=== PATIENT | male | born 1945 | race Caucasian/White ===

== ENCOUNTER 2019-06-06 10:52 | Emergency (ER) | payer MEDICARE ==
[2019-06-06 11:07] VITALS: RESP 18; TEMP 98.1
--- NOTE | 2019-06-06 11:43 | ED ---
General Adult HPI - General Chief complaint: Neuro Symptoms/Deficit Stated complaint: Fell out of chair/trouble seeing Time Seen by Provider: 06/06/19 11:08 Source: patient Mode of arrival: wheelchair Limitations: no limitations - History of Present Illness Initial comments: Dictation was produced using [employer] dictation software. please excuse any grammatical, word or spelling errors. Chief Complaint: 73-year-old male presents with double vision. History of Present Illness: 73-year-old male. He presents with double vision. Patient states he fell yesterday. States he was sitting on a chair when he was summoned by his . He stood up immediately and fell. Landing on his bilateral elbows. He does not really quite remember the fall. Since the fall he's been having double vision. Patient states his double vision is worse especially with forced site. States that he feels like sees to especially with images that are approximately 6-8 feet away. Patient has no other symptoms at this time. Denies headache. No other neurologic symptoms. 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 The ROS documented in this emergency department record has been reviewed and confirmed by me. Those systems with pertinent positive or negative responses have been documented in the HPI. All other systems are other negative and/or noncontributory. PHYSICAL EXAM: General Impression: Alert and oriented x3, not in acute distress HEENT: Normocephalic atraumatic, extra-ocular movements intact, pupils equal and reactive to light bilaterally, mucous membranes moist, perforated right tympanic membrane Cardiovascular: Heart regular rate and rhythm, S1&S2 audible, no murmurs, rubs or gallops Chest: Lungs clear to auscultation bilaterally, no rhonchi, no wheeze, no rales Abdomen: Bowel sounds present, abdomen soft, non-tender, non-distended, no organomegaly Musculoskeletal: Pulses present and equal in all extremities, no peripheral edema Motor: no focal deficits noted Neurological: CN II-XII grossly intact, no focal motor or sensory deficits noted When looking at my hand from approximately 10 feet away my hand appears to be split into Skin: Intact with no visualized rashes Psych: Normal affect and mood ED course: 73-year-old male presents with visual disturbance after fall. Upon a rrival are within acceptable limits. Physical examination is grossly benign. Laboratory evaluation obtained. CBC, coag panel, metabolic panels obtained. Grossly unremarkable except for glucose of 321. She denies any history of diabetes however he was told that he had prediabetes several years ago. Computed tomography scan of the brain was obtained with no acute processes. CT of the C-spine is negative. Discussed patient case in detail with Dr. Barnard who reports that his symptoms may be secondary to a stroke however unlikely. His acuity is 20/30 both, left 20/40 and right 20/30. Gen. he appears to have diplopia when looking with both eyes. She remains patient be admitted to observation with possible effusion of stroke workup tomorrow or later today. Patient states that he absolutely does not want to be admitted to the hospital for monitoring and neurology evaluation because his sick at home. Patient understands the risk of being discharged. He understands that he should return to the emergency Department immediately if he develops any worsening symptoms including strokelike symptoms or worsening vision. Patient is understandable and agreeable to plan. Patient will be discharged. Still to follow-up with his primary care physician. EKG interpretation: Ventricular rate he 9, normal sinus rhythm, AL interval 170, care 70, QTc 4:30. No AL prolongation, no QTC prolongation, no ST or T-wave changes noted. . Overall, this EKG is unremarkable - Related Data Home Medications Medication Instructions Recorded Confirmed No Known Home Medications 06/06/19 06/06/19 Allergies Allergy/AdvReac Type Severity Reaction Status Date / Time Sulfa (Sulfonamide Allergy Rash/Hives Verified 06/06/19 11:41 Antibiotics) Review of Systems ROS Statement: Those systems with pertinent positive or pertinent negative responses have been documented in the HPI. ROS Other: All systems not noted in ROS Statement are negative. Past Medical History Past Medical History: No Reported History History of Any Multi-Drug Resistant Organisms: None Reported Past Surgical History: No Surgical Hx Reported Past Psychological History: No Psychological Hx Reported Smoking Status: Never smoker Past Alcohol Use History: Occasional Past Drug Use History: None Reported General Exam Limitations: no limitations Course Vital Signs 06/06/19 11:02 Temperature 98.1 F Pulse Rate 91 Respiratory 18 Rate Blood Pressure 144/86 O2 Sat by Pulse 97 Oximetry Medical Decision Making - Lab Data Result diagrams: 06/06/19 11:33 06/06/19 11:33 Lab Results 06/06/19 06/06/19 06/06/19 Range/Units 11:33 11:33 11:33 WBC 7.1 (3.8-10.6) k/uL RBC 5.08 (4.30-5.90) m/uL Hgb 15.7 (13.0-17.5) gm/dL Hct 45.0 (39.0-53.0) % MCV 88.5 (80.0-100.0) fL MCH 30.8 (25.0-35.0) pg MCHC 34.8 (31.0-37.0) g/dL RDW 12.7 (11.5-15.5) % Plt Count 170 (150-450) k/uL Neutrophils % 70 % Lymphocytes % 20 % Monocytes % 6 % Eosinophils % 1 % Basophils % 0 % Neutrophils # 4.9 (1.3-7.7) k/uL Lymphocytes # 1.4 (1.0-4.8) k/uL Monocytes # 0.5 (0-1.0) k/uL Eosinophils # 0.1 (0-0.7) k/uL Basophils # 0.0 (0-0.2) k/uL PT 10.7 (9.0-12.0) sec INR 1.0 (<1.2) APTT 25.6 (22.0-30.0) sec Sodium 138 (137-145) mmol/L Potassium 4.2 (3.5-5.1) mmol/L Chloride 103 (98-107) mmol/L Carbon Dioxide 22 (22-30) mmol/L Anion Gap 13 mmol/L BUN 18 (9-20) mg/dL Creatinine 0.68 (0.66-1.25) mg/dL Est GFR (CKD-EPI)AfAm >90 (>60 ml/min/1.73 sqM) Est GFR (CKD-EPI)NonAf >90 (>60 ml/min/1.73 sqM) Glucose 321 H (74-99) mg/dL Calcium 9.9 (8.4-10.2) mg/dL Magnesium 1.9 (1.6-2.3) mg/dL Disposition Clinical Impression: Visual disturbance Disposition: HOME SELF-CARE Condition: Good Instructions (If sedation given, give patient instructions): Blurred Vision (ED) Is patient prescribed a controlled substance at d/c from ED?: No Referrals: Rosalio Palomares MD [Primary Care Provider] - 1-2 days Time of Disposition: 12:54
[2019-06-06 11:56] LABS: Basophils % (A) 0 %; Eosinophils # (A) 0.1 k/uL (0-0.7); Eosinophils % (A) 1 %; HGB 15.7 gm/dL (13.0-17.5); Lymphocytes # (A) 1.4 k/uL (1.0-4.8); Lymphocytes % (A) 20 %; MCH 30.8 pg (25.0-35.0); MCHC 34.8 g/dL (31.0-37.0); MCV 88.5 fL (80.0-100.0); Mean Platelet Volume 6.3; Monocytes # (A) 0.5 k/uL (0-1.0); Monocytes % (A) 6 %; Neutrophils # (A) 4.9 k/uL (1.3-7.7); Neutrophils % (A) 70 %; Platelet Count 170 k/uL (150-450); RBC 5.08 m/uL (4.30-5.90); RDW 12.7 % (11.5-15.5); WBC 7.1 k/uL (3.8-10.6)
--- NOTE | 2019-06-06 12:05 | CT ---
EXAMINATION TYPE: CT brain gertrude dumont con DATE OF EXAM: 06/06/2019 COMPARISON: None HISTORY: fell out of chair, visual disturbance CT DLP: 1461.6 mGycm, Automated exposure control for dose reduction was used. CONTRAST: Patient injected with neural mL of Isovue 300. CT of the brain is performed utilizing 3 mm thick sections through the posterior fossa and 3 mm thick sections through the remaining calvarium. Study is performed within 24 hours of arrival to the hospital. No abnormal hyperdensity is present to suggest an acute intracranial hemorrhage. No mass lesion is evident. No acute infarcts are evident. Ventricles and sulci are appropriate for the patient age. Paranasal sinuses and mastoid air cells within the [id number] are clear. IMPRESSIONS: 1. Normal CT brain. CT cervical spine. COMPARISON: None CT of the cervical spine is performed in the axial plane at 2 mm thick sections. Reconstructed image s in the coronal, and sagittal plane are reviewed on the computer. No acute fractures are evident. Vertebral body alignment is normal. Disc heights are preserved. Vertebral body heights are preserved. No spinal canal stenosis is evident. There is some foraminal narrowing secondary to facet hypertrophy and uncovertebral joint hypertrophy. This is greater on the right at C5-6. Left foraminal stenosis is evident C3-4. Right foraminal narro wing is present C2-C3. IMPRESSIONS: 1. Foraminal narrowing greatest levels discussed above secondary to facet hypertrophy and uncovertebr al joint hypertrophy. 2. No acute osseous abnormality.
[2019-06-06 12:13] LABS: African American GFR (CKD) >90 (>60 ml/min/1.73 sqM); Anion Gap 13 mmol/L; Blood Urea Nitrogen 18 mg/dL (9-20); Calcium 9.9 mg/dL (8.4-10.2); Carbon Dioxide 22 mmol/L (22-30); Chloride 103 mmol/L (98-107); Glucose 321 mg/dL (74-99); Magnesium 1.9 mg/dL (1.6-2.3); Potassium 4.2 mmol/L (3.5-5.1); Sodium 138 mmol/L (137-145)
[2019-06-06 12:27] LABS: Partial Thromboplastin Time 25.6 sec (22.0-30.0); Prothrombin Time 10.7 sec (9.0-12.0)
[2019-06-06 13:10] VITALS: BP 143/89; PULSE 89
== END 2019-06-06 13:01 | disposition home or self-care (01) ==
LOC: EC 10:52
DX: H53.2 Diplopia (principal); R73.03 Prediabetes; H72.91 Unspecified perforation of tympanic membrane, right ear; Z88.2 Allergy status to sulfonamides; W07.XXXA Fall from chair, initial encounter
CPT/HCPCS: 36415; 70450; 72125; 80048; 83735; 85025; 85610; 85730; 93005; 99285

== ENCOUNTER → 2019-06-25 | Outpatient (CLI) | payer MEDICARE ==
--- NOTE | 2019-06-25 16:56 | MR ---
EXAMINATION TYPE: MR brain wo/w con DATE OF EXAM: 06/25/2019 COMPARISON: None HISTORY: Syncope TECHNIQUE: Multiplanar, multisequence images of the brain and brainstem is performed without and with IV contras t, utilizing 9 mL intravenous Gadavist . FINDINGS: There is mild cerebral atrophy. There is no mass effect nor midline shift. There is no sign of intracranial hemorrhage. Diffusion images show no evidence of a cortical infarct. Ventricles have fairly normal size. There is some mild dural thickening over both cerebral hemispheres in the parietal regions. This madeline ures up to 5 mm on the right side and 23 mm on the left side. Corpus callosum appears normal. Brainstem is intact. Sella turcica appears normal. IMPRESSION: Mild cerebral atrophy. Mild bilateral dural thickening that could relate to old inflammat ory process or chronic subdural hematomas.
== END | disposition home or self-care (01) ==
LOC: RADMRIMAIN 09:04
PROVIDERS: ATTEND Family Medicine
DX: G31.9 Degenerative disease of nervous system, unspecified (principal)
CPT/HCPCS: 70553; A9585

== ENCOUNTER → 2019-06-27 | Outpatient (CLI) | payer MEDICARE ==
--- NOTE | 2019-06-28 11:49 | ECHOF ---
Referral Reason:R55 syncope MEASUREMENTS -------- HEIGHT: 182.9 cm WEIGHT: 46.7 kg BP: RVIDd: 3.2 cm (< 3.3) IVSd: 1.2 cm (0.6 - 1.1) LVIDd: 4.1 cm (3.9 - 5.3) LVPWd: 1.1 cm (0.6 - 1.1) IVSs: 1.5 cm LVIDs: 3.3 cm LVPWs: 1.1 cm LA Diam: 3.4 cm (2.7 - 3.8) Ao Diam: 3.7 cm (2.0 - 3.7) AV Cusp: 1.4 cm (1.5 - 2.6) LA Diam: 3.2 cm (2.7 - 3.8) MV EXCURSION: 19.089 mm (> 18.000) MV EF SLOPE: 63 mm/s (70 - 150) EPSS: 0.2 cm MV E Michael: 0.38 m/s MV DecT: 318 ms MV A Michael: 0.91 m/s MV E/A Ratio: 0.42 AV maxP.00 mmHg AV meanP.73 mmHg FINDINGS -------- Sinus rhythm. This was a technically good study. The left ventricular size is normal. There is mild concentric left ventricular hypertrophy. Overa ll left ventricular systolic function is normal with, an EF between 55 - 60 %. The right ventricle is normal in size. The left atrial size is normal. The right atrial size is normal. There is mild to moderate aortic valve sclerosis. Peak/mean gradient across the Aortic Valve is 9.0 0mmHg / 4.73mmHg. Mild mitral annular calcification present. No mitral regurgitation. Mild tricuspid regurgitation present. Right ventricular systolic pressure is normal at < 35 mmHg. There is no evidence of pulmonary hypertension. There is no pulmonic regurgitation present. The aortic root size is normal. There is no pericardial effusion. CONCLUSIONS -------- 1. Sinus rhythm. 2. This was a technically good study. 3. The left ventricular size is normal. 4. There is mild concentric left ventricular hypertrophy. 5. Overall left ventricular systolic function is normal with, an EF between 55 - 60 %. 6. The right ventricle is normal in size. 7. The left atrial size is normal. 8. The right atrial size is normal. 9. There is mild to moderate aortic valve sclerosis. 10. Peak/mean gradient across the Aortic Valve is 9.00mmHg / 4.73mmHg. 11. Mild mitral annular calcification present. 12. No mitral regurgitation. 13. Mild tricuspid regurgitation present. 14. Right ventricular systolic pressure is normal at < 35 mmHg. 15. There is no evidence of pulmonary hypertension. 16. There is no pulmonic regurgitation present. 17. The aortic root size is normal. 18. There is no pericardial effusion. [employer] SUPERVISOR: Kate Norris RDCS
--- NOTE | 2019-06-28 12:30 | US ---
EXAMINATION TYPE: US carotid duplex BILAT DATE OF EXAM: 06/27/2019 COMPARISON: NONE CLINICAL HISTORY: 74-year-old male R55 SYNCOPE AND COLLAPSE. Dizziness TECHNIQUE: Carotid duplex ultrasound examination. Indirect Doppler criteria is utilized. FINDINGS: EXAM MEASUREMENTS: RIGHT: Peak Systolic Velocity (PSV) cm/sec ----- Right CCA: 109.9 ----- Right ICA: 134.6 ----- Right ECA: 108.4 ICA/CCA ratio: 1.2 RIGHT: End Diastole cm/sec ----- Right CCA: 25.6 ----- Right ICA: 31.4 ----- Right ECA: 0 LEFT: Peak Systolic Velocity (PSV) cm/sec ----- Left CCA: 91.0 ----- Left ICA: 107.0 ----- Left ECA: 131.7 ICA/CCA ratio: 1.2 LEFT: End Diastole cm/sec ----- Left CCA: 25.6 ----- Left ICA: 31.4 ----- Left ECA: 22.7 VERTEBRALS (direction of flow): Right Vertebral: Antegrade Left Vertebral: Antegrade Rhythm: Normal No significant stenosis seen Mild to moderate atherosclerotic calcifications right bifurcation and mild on the left. IMPRESSION: Slightly increased velocities within the mid right ICA may reflect a mild or moderate right ICA steno sis or could be from turbulent flow. Criteria for Assigning % of Stenosis / Diameter reduction (Estimation based on the indirect measurements of the internal carotid artery velocities (ICA PSV). 1. Normal (no stenosis)=ICA PSV < 125 cm/s: ratio < 2.0: ICA EDV<40 cm/s. 2. Less than 50% stenosis=ICA PSV < 125 cm/s: ratio < 2.0: ICA EDV<40 cm/s. 3. 50 to 69% stenosis=ICA PSV of 125 to 230 cm/s: ration 2.0 ? 4.0: ICA EDV 40-100 cm/s. 4. Greater than 70% stenosis to near occlusion= ICA PSV > 230 cm/s: ratio > 4.0: ICA EDV > 100 cm/s. 5. Near occlusion= ICA PSV velocities may be low or undetectable: variable ratio and ICA EDV. 6. Total occlusion=unable to detect flow.
== END | disposition home or self-care (01) ==
LOC: RADUSWWP 12:40
PROVIDERS: ATTEND Family Medicine
DX: R55 Syncope and collapse (principal)
CPT/HCPCS: 93306; 93880

== ENCOUNTER 2023-05-08 00:17 | Emergency (ER) | payer MEDICARE ==
[2023-05-08 00:25] VITALS: TEMP 98.4
[2023-05-08] MEDS ORDERED: SODIUM CHLORIDE 0.9% 500 ML 500 ML IV STA (01:45)
[2023-05-08] MEDS ORDERED: MORPHINE SULFATE 4 MG/ML SYRINGE IV STA (01:45)
[2023-05-08] MEDS ORDERED: ONDANSETRON 4 MG/2 ML VIAL IVP STA (01:45)
[2023-05-08 02:29] LABS: Basophils % (A) 0 %; Eosinophils # (A) 0.2 k/uL (0-0.7); Eosinophils % (A) 1 %; HCT 46.3 % (39.0-53.0); HGB 15.4 gm/dL (13.0-17.5); Lymphocytes # (A) 0.7 k/uL (1.0-4.8); Lymphocytes % (A) 5 %; MCH 30.7 pg (25.0-35.0); MCHC 33.2 g/dL (31.0-37.0); MCV 92.6 fL (80.0-100.0); Mean Platelet Volume 8.2; Monocytes # (A) 0.6 k/uL (0-1.0); Monocytes % (A) 4 %; Neutrophils # (A) 14.3 k/uL (1.3-7.7); Neutrophils % (A) 90 %; Platelet Count 199 k/uL (150-450); RBC 5.01 m/uL (4.30-5.90); RDW 12.9 % (11.5-15.5); WBC 15.9 k/uL (3.8-10.6)
[2023-05-08 02:52] LABS: ALT 17 U/L (4-49); AST 23 U/L (17-59); African American GFR (CKD) 51 (>60 ml/min/1.73 sqM); Albumin 4.4 g/dL (3.5-5.0); Alkaline Phosphatase 66 U/L (38-126); Anion Gap 12 mmol/L; Blood Urea Nitrogen 35 mg/dL (9-20); Calcium 9.5 mg/dL (8.4-10.2); Carbon Dioxide 19 mmol/L (22-30); Chloride 102 mmol/L (98-107); Glucose 244 mg/dL (74-99); Non-African American GFR(CKD) 44 (>60 ml/min/1.73 sqM); Potassium 4.6 mmol/L (3.5-5.1); Sodium 133 mmol/L (137-145); Total Protein 7.4 g/dL (6.3-8.2)
[2023-05-08 03:20] VITALS: RESP 16
[2023-05-08 03:39] LABS: Appearance,Urine Clear (Clear); Bacteria,Urine Rare /hpf; Bilirubin,Urine Negative (Negative); Blood,Urine Negative (Negative); Color,Urine Yellow; Glucose,Urine (UA) 3+ (Negative); Hyaline Casts,Urine 14 /lpf (0-2); Ketones,Urine Trace (Negative); Leukocyte Esterase,Urine Trace (Negative); Mucus,Urine Rare /hpf; Nitrite,Urine Negative (Negative); PH, Urine 5.5 (5.0-8.0); Protein,Urine Trace (Negative); RBC,Urine 1 /hpf (0-5); Specific Gravity,Urine 1.024 (1.001-1.035); Urobilinogen,Urine <2.0 mg/dL (<2.0); WBC,Urine 7 /hpf (0-5)
[2023-05-08 05:25] VITALS: PULSE 77
[2023-05-08 06:16] VITALS: BP 143/92
[2023-05-08] MEDS ORDERED: TAMSULOSIN 0.4 MG CAP.ER.24H PO STA (06:35)
--- NOTE | 2023-05-08 06:35 | ED ---
Back Pain HPI - General Chief Complaint: Back Pain/Injury Stated Complaint: Vomitting Time Seen by Provider: 05/08/23 00:52 Source: patient Limitations: no limitations - History of Present Illness Initial Comments: This patient is 77-year-old man presenting with acute onset of left flank pain. He describes pain as sharp, associated with nausea and vomiting. There is no change in bowel function. Patient stated that his urine was darker. No loss of continence. There is no weakness or numbness to the extremities. MD Complaint: back pain -: hour(s) Similar Symptoms Previously: No Place: home Radiation: groin Severity: severe Quality: sharp Consistency: constant Improves With: none Worsens With: none Associated Symptoms: nausea/vomiting - Related Data Home Medications Medication Instructions Recorded Confirmed metFORMIN HCL [Glucophage] 500 mg PO BID 07/06/19 07/06/19 Previous Rx's Medication Instructions Recorded HYDROcodone/APAP 5-325MG [[place] 1 tab PO Q4HR PRN 3 Days #18 tab 05/08/23 5-325] Ondansetron Odt [Zofran ODT] 4 mg PO Q8HR PRN #10 tab 05/08/23 Allergies Allergy/AdvReac Type Severity Reaction Status Date / Time Sulfa (Sulfonamide Allergy Rash/Hives Verified 05/08/23 00:22 Antibiotics) Review of Systems ROS Statement: Those systems with pertinent positive or pertinent negative responses have been documented in the HPI. ROS Other: All systems not noted in ROS Statement are negative. Constitutional: Denies: fever, chills, weakness Respiratory: Denies: cough, dyspnea Cardiovascular: Denies: chest pain, palpitations, edema Gastrointestinal: Reports: nausea, vomiting. Denies: abdominal pain, diarrhea, constipation, hematemesis, melena, hematochezia Genitourinary: Reports: frequency, hematuria. Denies: dysuria, testicular pain, testicular mass Musculoskeletal: Denies: back pain Skin: Denies: rash Neurological: Denies: headache, weakness, numbness Past Medical History Past Medical History: Diabetes Mellitus, Hyperlipidemia History of Any Multi-Drug Resistant Organisms: None Reported Past Surgical History: No Surgical Hx Reported Past Psychological History: No Psychological Hx Reported Smoking Status: Never smoker Past Alcohol Use History: Occasional Past Drug Use History: None Reported General Exam Limitations: no limitations General appearance: alert, in no apparent distress Head exam: Present: atraumatic, normocephalic Eye exam: Present: normal appearance. Absent: scleral icterus, conjunctival injection Neck exam: Present: normal inspection, full ROM Respiratory exam: Present: normal lung sounds bilaterally. Absent: respiratory distress, wheezes, rales, rhonchi, stridor Cardiovascular Exam: Present: regular rate, normal rhythm, normal heart sounds. Absent: systolic murmur, diastolic murmur, rubs, gallop GI/Abdominal exam: Present: soft. Absent: distended, tenderness, guarding, rebound, rigid, mass Extremities exam: Present: normal inspection, normal capillary refill. Absent: pedal edema, calf tenderness Back exam: Present: normal inspection, CVA tenderness (L). Absent: CVA tenderness (R), vertebral tenderness Neurological exam: Present: alert Skin exam: Present: warm, dry, intact, normal color. Absent: rash Course Vital Signs 05/08/23 05/08/23 05/08/23 00:20 03:14 04:00 Temperature 98.4 F Pulse Rate 106 H 88 76 Respiratory 18 16 16 Rate Blood Pressure 153/81 141/78 166/89 O2 Sat by Pulse 98 96 96 Oximetry 05/08/23 05/08/23 05:17 06:07 Temperature Pulse Rate 77 77 Respiratory 16 16 Rate Blood Pressure 143/88 143/92 O2 Sat by Pulse 96 97 Oximetry Medical Decision Making - Medical Decision Making The patient had CT scan of the abdomen pelvis which I interpreted as showing left-sided hydronephrosis and suspected ureteral stone Was pt. sent in by a medical professional or institution (, PA, HIGH SCHOOL COACH, urgent care, hospital, or correction...) When possible be specific @ -[No] Did you speak to anyone other than the patient for history (EMS, parent, family, police, friend...)? What history was obtained from this source @ -[No] Did you review nursing and triage notes (agree or disagree)? Why? @ -[I reviewed and agree with nursing and triage notes] Were old charts reviewed (outside hosp., previous admission, EMS record, old EKG, old radiological studies, urgent care reports/EKG's, correction records)? Report findings @ -[No old charts were reviewed] Differential Diagnosis (chest pain, altered mental status, abdominal pain women, abdominal pain men, vaginal bleeding, weakness, fever, dyspnea, syncope, headache, dizziness, GI bleed, back pain, seizure, CVA, palpatations, mental health, musculoskeletal)? @ -[Differential Back Pain: Strain, zoster, cauda equina syndrome, epidural abscess, vertebral osteomyelitis, discitis, fracture, subluxation, disc herniation, DJD, spinal stenosis, dissection, AAA, pancreatitis, peptic ulcer disease, pyelonephritis, kidney stone, this is not meant to be an all-inclusive list. EKG interpreted by me (3pts min.). @ -[As above] X-rays interpreted by me (1pt min.). @ -[None done] CT interpreted by me (1pt min.). @ -[I interpreted as above U/S interpreted by me (1pt. min.). @ -[None done] What testing was considered but not performed or refused? (CT, X-rays, U/S, la bs)? Why? @ -[None] What meds were considered but not given or refused? Why? @ -[None] Did you discuss the management of the patient with other professionals (professionals i.e. , PA, HIGH SCHOOL COACH, lab, RT, psych nurse, high school social science teacher, corporate communications specialist, teacher, correctional officer, corrections caseworker)? Give summary @ -[No] Was smoking cessation discussed for >3mins.? @ -[No] Was critical care preformed (if so, how long)? @ -[No] Were there social determinants of health that impacted care today? How? (Homelessness, low income, unemployed, alcoholism, drug addiction, transportation, low edu. Level, literacy, decrease access to med. care, skilled nursing, rehab)? @ -[No] Was there de-escalation of care discussed even if they declined (Discuss DNR or withdrawal of care, Hospice)? DNR status @ -[No] What co-morbidities impacted this encounter? (DM, HTN, Smoking, COPD, CAD, Cancer, CVA, ARF, Chemo, Hep., AIDS, mental health diagnosis, sleep apnea, morbid obesity)? @ -[None] Was patient admitted / discharged? Hospital course, mention meds given and route, prescriptions, significant lab abnormalities, going to OR and other pe rtinent info. @ -[Patient is 77-year-old man presenting with flank pain that is strongly suggestive of stone. No history or physical red flag findings suggestive of spinal source. The CT does support kidney stone as etiology. The patient did have relief of symptoms with medication. We discussed appropriate further care and follow-up as well as return parameters. Undiagnosed new problem with uncertain prognosis? @ -[No] Drug Therapy requiring intensive monitoring for toxicity (Heparin, Nitro, Insulin, Cardizem)? @ -[No] Were any procedures done? @ -[No] Diagnosis/symptom? @ -[Left flank pain Acute kidney stone with hydronephrosis Acute, or Chronic, or Acute on Chronic? @ -[Acute Uncomplicated (without systemic symptoms) or Complicated (systemic symptoms)? @ -[Uncomplicated Side effects of treatment? @ -[No] Exacerbation, Progression, or Severe Exacerbation? @ -[No] Poses a threat to life or bodily function? How? (Chest pain, [place], [place], pneumonia, PE, COPD, DKA, ARF, appy, cholecystitis, CVA, Diverticulitis, Homicidal, Suicidal, threat to staff... and all critical care pts) @ -[No] - Lab Data Result diagrams: 05/08/23 02:15 05/08/23 02:15 Lab Results 05/08/23 05/08/23 05/08/23 Range/Units 02:15 02:15 02:15 WBC 15.9 H (3.8-10.6) k/uL RBC 5.01 (4.30-5.90) m/uL Hgb 15.4 (13.0-17.5) gm/dL Hct 46.3 (39.0-53.0) % MCV 92.6 (80.0-100.0) fL MCH 30.7 (25.0-35.0) pg MCHC 33.2 (31.0-37.0) g/dL RDW 12.9 (11.5-15.5) % Plt Count 199 (150-450) k/uL MPV 8.2 Neutrophils % 90 % Lymphocytes % 5 % Monocytes % 4 % Eosinophils % 1 % Basophils % 0 % Neutrophils # 14.3 H (1.3-7.7) k/uL Lymphocytes # 0.7 L (1.0-4.8) k/uL Monocytes # 0.6 (0-1.0) k/uL Eosinophils # 0.2 (0-0.7) k/uL Basophils # 0.0 (0-0.2) k/uL D-Dimer 1.20 H (<0.60) mg/L FEU Sodium 133 L (137-145) mmol/L Potassium 4.6 (3.5-5.1) mmol/L Chloride 102 (98-107) mmol/L Carbon Dioxide 19 L (22-30) mmol/L Anion Gap 12 mmol/L BUN 35 H (9-20) mg/dL Creatinine 1.51 H (0.66-1.25) mg/dL Est GFR (CKD-EPI)AfAm 51 (>60 ml/min/1.73 sqM) Est GFR (CKD-EPI)NonAf 44 (>60 ml/min/1.73 sqM) Glucose 244 H (74-99) mg/dL Plasma Lactic Acid Tr (0.7-2.0) mmol/L Calcium 9.5 (8.4-10.2) mg/dL Total Bilirubin 3.0 H (0.2-1.3) mg/dL AST 23 (17-59) U/L ALT 17 (4-49) U/L Alkaline Phosphatase 66 (38-126) U/L Total Protein 7.4 (6.3-8.2) g/dL Albumin 4.4 (3.5-5.0) g/dL Urine Color Urine Appearance (Clear) Urine pH (5.0-8.0) Ur Specific [place] (1.001-1.035) Urine Protein (Negative) Urine Glucose (UA) (Negative) Urine Ketones (Negative) Urine Blood (Negative) Urine Nitrite (Negative) Urine Bilirubin (Negative) Urine Urobilinogen (<2.0) mg/dL Ur Leukocyte Esterase (Negative) Urine RBC (0-5) /hpf Urine WBC (0-5) /hpf Urine Bacteria (None) /hpf Hyaline Casts (0-2) /lpf Urine Mucus (None) /hpf 05/08/23 05/08/23 Range/Units 02:15 03:13 WBC (3.8-10.6) k/uL RBC (4.30-5.90) m/uL Hgb (13.0-17.5) gm/dL Hct (39.0-53.0) % MCV (80.0-100.0) fL MCH (25.0-35.0) pg MCHC (31.0-37.0) g/dL RDW (11.5-15.5) % Plt Count (150-450) k/uL MPV Neutrophils % % Lymphocytes % % Monocytes % % Eosinophils % % Basophils % % Neutrophils # (1.3-7.7) k/uL Lymphocytes # (1.0-4.8) k/uL Monocytes # (0-1.0) k/uL Eosinophils # (0-0.7) k/uL Basophils # (0-0.2) k/uL D-Dimer (<0.60) mg/L FEU Sodium (137-145) mmol/L Potassium (3.5-5.1) mmol/L Chloride (98-107) mmol/L Carbon Dioxide (22-30) mmol/L Anion Gap mmol/L BUN (9-20) mg/dL Creatinine (0.66-1.25) mg/dL Est GFR (CKD-EPI)AfAm (>60 ml/min/1.73 sqM) Est GFR (CKD-EPI)NonAf (>60 ml/min/1.73 sqM) Glucose (74-99) mg/dL Plasma Lactic Acid Tr 1.9 (0.7-2.0) mmol/L Calcium (8.4-10.2) mg/dL Total Bilirubin (0.2-1.3) mg/dL AST (17-59) U/L ALT (4-49) U/L Alkaline Phosphatase (38-126) U/L Total Protein (6.3-8.2) g/dL Albumin (3.5-5.0) g/dL Urine Color Yellow Urine Appearance Clear (Clear) Urine pH 5.5 (5.0-8.0) Ur Specific [place] 1.024 (1.001-1.035) Urine Protein Trace H (Negative) Urine Glucose (UA) 3+ H (Negative) Urine Ketones Trace H (Negative) Urine Blood Negative (Negative) Urine Nitrite Negative (Negative) Urine Bilirubin Negative (Negative) Urine Urobilinogen <2.0 (<2.0) mg/dL Ur Leukocyte Esterase Trace H (Negative) Urine RBC 1 (0-5) /hpf Urine WBC 7 H (0-5) /hpf Urine Bacteria Rare H (None) /hpf Hyaline Casts 14 H (0-2) /lpf Urine Mucus Rare H (None) /hpf Disposition Clinical Impression: Kidney stone on left side Disposition: HOME SELF-CARE Condition: Good Instructions (If sedation given, give patient instructions): Kidney Stones (ED) Prescriptions: HYDROcodone/APAP 5-325MG [[place] 5-325] 1 tab PO Q4HR PRN 3 Days #18 tab PRN Reason: Pain Ondansetron Odt [Zofran ODT] 4 mg PO Q8HR PRN #10 tab PRN Reason: Nausea Is patient prescribed a controlled substance at d/c from ED?: Yes When asked, does pt state using other controlled substances?: No If prescribed controlled substance>3 days was MAPS reviewed?: Prescribed <3 Days If opioid is for acute pain is fill amount 7 days or less?: Yes If Rx opioid, was Start Talking consent form obtained?: Yes Referrals: Rosalio Palomares MD [Primary Care Provider] - 1-2 days
--- NOTE | 2023-05-08 07:29 | CT ---
EXAMINATION TYPE: CT abdomen pelvis wo con DATE OF EXAM: 05/08/2023 COMPARISON: None HISTORY: 77-year-old male left flank pain, nausea and vomiting CT DLP: 562.6 mGycm. Automated exposure control for dose reduction was used. TECHNIQUE: Contiguous axial scanning of the abdomen and pelvis without IV contrast. Coronal and sagit avni reconstructions performed. FINDINGS: Heart is normal size. Moderate aortic valvular calcifications. Ectatic ascending aorta 3.8 cm. Small anterior pericardial effusion measuring 8 mm. Prominent dependent atelectasis in the lower lungs. Tiny hiatal hernia. Noncontrast appearance of the liver, gallbladder, adrenal glands, right kidney, spleen, and pancreas show no gross evaluate. There is moderate left-sided hydronephrosis. Suspected underlying 1 cm renal cortical cyst on the lef t. Approximately 3 nonobstructive left renal calculi are present measuring up to 4 mm. There is also mild left-sided hydronephrosis with a 6 mm stone in the mid left ureter. Additional 6 mm dependent bl adder stone. No dilated small bowel, free fluid, or free air. No mesenteric or retroperitoneal lymphadenopathy. Mild to moderate stool burden. No pericolonic inflammatory change. Bladder urine distended. Above-mentioned bladder stone. Prostate gland mildly enlarged at 4.5 cm wide . Pelvic phleboliths. No abnormal fluid collection in the pelvis or pelvic lymphadenopathy. Bones: [facility] in the lower thoracic spine. No osseous destructive process. IMPRESSION: 1. A 6 mm stone in the mid left ureter with moderate obstructive uropathy. Additional nonobstructive left renal calculi measuring up to 4 mm. 2. Also, there is a 6 mm bladder calculus noted.
== END 2023-05-08 06:57 | disposition home or self-care (01) ==
LOC: EC 00:17
DX: N20.2 Calculus of kidney with calculus of ureter (principal); N21.0 Calculus in bladder; E11.9 Type 2 diabetes mellitus without complications; Z79.84 Long term (current) use of oral hypoglycemic drugs; Z88.2 Allergy status to sulfonamides
CPT/HCPCS: 36415; 85379; 80053; 83605; 85025; 81001; 74176; 99284; 96374; 96375; J2270; J2405

== ENCOUNTER 2024-05-23 10:15 | Emergency (ER) | payer MEDICARE ==
[2024-05-23 10:41] VITALS: TEMP 97.3
[2024-05-23 11:30] LABS: Basophils % (A) 0 %; Eosinophils # (A) 0.1 k/uL (0-0.7); Eosinophils % (A) 1 %; HCT 42.9 % (39.0-53.0); HGB 14.1 gm/dL (13.0-17.5); Lymphocytes # (A) 0.8 k/uL (1.0-4.8); Lymphocytes % (A) 8 %; MCH 30.6 pg (25.0-35.0); MCV 92.7 fL (80.0-100.0); Mean Platelet Volume 7.5; Monocytes # (A) 0.3 k/uL (0-1.0); Monocytes % (A) 3 %; Neutrophils # (A) 8.8 k/uL (1.3-7.7); Neutrophils % (A) 87 %; Platelet Count 211 k/uL (150-450); RBC 4.63 m/uL (4.30-5.90)
[2024-05-23 11:47] LABS: ALT 20 U/L (4-49); AST 25 U/L (17-59); African American GFR (CKD) 80 (>60 ml/min/1.73 sqM); Albumin 4.7 g/dL (3.5-5.0); Alkaline Phosphatase 69 U/L (38-126); Anion Gap 14 mmol/L; Blood Urea Nitrogen 17 mg/dL (9-20); Calcium 9.5 mg/dL (8.4-10.2); Carbon Dioxide 20 mmol/L (22-30); Chloride 104 mmol/L (98-107); Glucose 261 mg/dL (74-99); Lipase 95 U/L (23-300); Non-African American GFR(CKD) 69 (>60 ml/min/1.73 sqM); Potassium 4.3 mmol/L (3.5-5.1); Sodium 138 mmol/L (137-145); Total Bilirubin 1.4 mg/dL (0.2-1.3); Total Protein 7.2 g/dL (6.3-8.2)
[2024-05-23] MEDS: ONDANSETRON 4 MG/2 ML VIAL IVP STA (11:53)
[2024-05-23] MEDS: KETOROLAC 15 MG/ML 1 ML VIAL IVP STA (11:55)
[2024-05-23] MEDS: SODIUM CHLORIDE 0.9% 1,000 ML IV STA (11:56)
--- NOTE | 2024-05-23 12:34 | CT ---
EXAMINATION TYPE: CT abdomen pelvis wo con CT DLP: 570.3 mGycm, Automated exposure control for dose reduction was used. DATE OF EXAM: 05/23/2024 12:12 PM COMPARISON: CT abdomen pelvis 05/08/2023 CLINICAL INDICATION:Male, 78 years old with history of abdominal pain RLQ; RLQ PAIN TECHNIQUE: Standard CT of the abdomen and pelvis without IV or oral contrast. Lack of IV or oral co ntrast limits evaluation of solid and hollow organ viscera. Coronal and sagittal reformats were perfo rmed. FINDINGS: LOWER CHEST: Bilateral lower lobe linear atelectasis and/or scarring. RCA calcifications. Aortic valv ular calcifications. Trace pericardial effusion. ABDOMEN LIVER: Unremarkable noncontrast appearance GALLBLADDER AND BILE DUCTS: Unremarkable noncontrast appearance PANCREAS: Unremarkable noncontrast appearance SPLEEN: Unremarkable noncontrast appearance ADRENAL GLANDS: Unremarkable noncontrast appearance. KIDNEYS AND URETERS: Mild right hydroureteronephrosis without obstructing calculus identified. No lef t hydronephrosis. Prominent right perinephric and perirenal fat stranding was additional fat strandin g within the retroperitoneum midline and tracking along the right iliopsoas. Fluid is identified with in the right paracolic gutter. Approximately 5 nonobstructive left renal calculi with largest measuri ng up to 4 mm. Left lower pole 1.3 cm hypodense cyst. PELVIS BLADDER: There are 2 bladder calculi identified with one end within the posterior right urinary bladd er measuring up to 2 mm. The other larger one measures up to 7 mm within the left posterior urinary b ladder near the ureterovesical junction. This was likely within the bladder on prior exam. REPRODUCTIVE: The prostate gland with few punctate calcifications. This indents upon the urinary blad nancy base. ABDOMEN & PELVIS STOMACH AND BOWEL: Small hiatal hernia, duodenum is unremarkable. No focal bowel wall thickening. The appendix is within normal limits. No evidence of bowel obstruction. PERITONEUM/RETROPERITONEUM: No evidence of pneumoperitoneum. Small amount of fluid within the right p aracolic gutter with fat stranding/fluid within the right retroperitoneum extending to midline. VASCULATURE: Moderate atherosclerotic calcifications are present throughout the abdominal aorta and i ts branches. No evidence of aortic aneurysm. MUSCULOSKELETAL: No acute osseous abnormalities. Bilateral SI joint degenerative changes with anterio r bridging. Multilevel degenerative changes of the visualized spine. LYMPH NODES: No gross evidence for lymphadenopathy. SOFT TISSUE/ABDOMINAL WALL: Unremarkable IMPRESSION: 1. Mild right hydronephrosis without obstructing calculus. There is surrounding fat stranding with s mall amount of fluid within the right retroperitoneum extending into the paracolic gutter likely repr esenting calyceal rupture. 2 urinary bladder calculi identified with one somewhat near the right uret erovesical junction likely representing a recently passed calculus. Additional larger urinary bladder calculus appears to have been present on prior CT. 2. Nonobstructive left renal calculi. [facility], , 05/23/2024 12:32 PM
[2024-05-23 14:11] LABS: Appearance,Urine Clear (Clear); Bilirubin,Urine Negative (Negative); Blood,Urine Trace (Negative); Color,Urine Colorless; Glucose,Urine (UA) 4+ (Negative); Ketones,Urine 1+ (Negative); Leukocyte Esterase,Urine Negative (Negative); Nitrite,Urine Negative (Negative); Protein,Urine Negative (Negative); RBC,Urine 1 /hpf (0-5); Urobilinogen,Urine <2.0 mg/dL (<2.0); WBC,Urine <1 /hpf (0-5)
--- NOTE | 2024-05-23 14:19 | ED ---
Abdominal Pain HPI - General Chief Complaint: Abdominal Pain Stated Complaint: abd pain Time Seen by Provider: 05/23/24 10:30 Source: patient, RN notes reviewed Mode of arrival: ambulatory Limitations: no limitations - History of Present Illness Initial Comments: 78-year-old male presents emergency department complaint of right flank pain. Patient states it was sudden onset is worse with movement. Patient states he had a kidney stone in the past but states this does not feel similar. Patient states nothing can get him comfortable. Patient denies any fevers or chills no chest pain no shortness of breath no dysuria no change in bowel habits. - Related Data Home Medications Medication Instructions Recorded Confirmed metFORMIN HCL [Glucophage] 500 mg PO BID 07/06/19 05/23/24 Multivitamins, Thera [Multivitamin 1 tab PO HS 05/23/24 05/23/24 (formulary)] Rosuvastatin [Crestor] 10 mg PO HS 05/23/24 05/23/24 Tamsulosin HCl [Flomax] 0.4 mg PO HS 05/23/24 05/23/24 Allergies Allergy/AdvReac Type Severity Reaction Status Date / Time Sulfa (Sulfonamide Allergy Rash/Hives Verified 05/23/24 11:15 Antibiotics) Review of Systems ROS Statement: Those systems with pertinent positive or pertinent negative responses have been documented in the HPI. ROS Other: All systems not noted in ROS Statement are negative. Past Medical History Past Medical History: Diabetes Mellitus, Hyperlipidemia History of Any Multi-Drug Resistant Organisms: None Reported Past Surgical History: No Surgical Hx Reported Past Psychological History: No Psychological Hx Reported Smoking Status: Never smoker Past Alcohol Use History: Occasional Past Drug Use History: None Reported General Exam Limitations: no limitations General appearance: alert, in no apparent distress Eye exam: Present: normal appearance, PERRL, EOMI. Absent: scleral icterus, conjunctival injection, periorbital swelling ENT exam: Present: normal exam, mucous membranes moist Neck exam: Present: normal inspection, full ROM. Absent: tenderness, meningismus, lymphadenopathy Respiratory exam: Present: normal lung sounds bilaterally. Absent: respiratory distress, wheezes, rales, rhonchi, stridor Cardiovascular Exam: Present: regular rate, normal rhythm, normal heart sounds. Absent: systolic murmur, diastolic murmur, rubs, gallop, clicks Neurological exam: Present: alert, oriented X3, CN II-XII intact Skin exam: Present: warm, dry, intact, normal color. Absent: rash Course Vital Signs 05/23/24 05/23/24 05/23/24 10:36 13:29 15:02 Temperature 97.3 F L Pulse Rate 64 106 H 90 Respiratory 18 17 16 Rate Blood Pressure 171/84 140/84 138/93 O2 Sat by Pulse 96 93 L 100 Oximetry Medical Decision Making - Medical Decision Making Was pt. sent in by a medical professional or institution (, PA, ENGRAVER APPRENTICE DECORATIVE, urgent care, hospital, or usp...) When possible be specific @ -No Did you speak to anyone other than the patient for history (EMS, parent, family, police, friend...)? What history was obtained from this source @ -No Did you review nursing and triage notes (agree or disagree)? Why? @ -I reviewed and agree with nursing and triage notes Were old charts reviewed (outside hosp., previous admission, EMS record, old EKG, old radiological studies, urgent care reports/EKG's, usp records)? Report findings @ -No old charts were reviewed Differential Diagnosis (chest pain, altered mental status, abdominal pain women, abdominal pain men, vaginal bleeding, weakness, fever, dyspnea, syncope, headache, dizziness, GI bleed, back pain, seizure, CVA, palpatations, mental hea lth, musculoskeletal)? @ -Differential Abdominal Pain Men: Appendicitis, cholecystitis, diverticulosis, ischemic bowel, pancreatitis, hepatitis, UTI, gastroenteritis, AAA, incarcerated hernia, bowel obstruction, constipation, inflammatory bowel, hepatitis, peptic ulcer disease, splenic infarction, perforated viscus, testicular torsion, this is not meant to be an all-inclusive list EKG interpreted by me (3pts min.). @ -None X-rays interpreted by me (1pt min.). @ -None done CT interpreted by me (1pt min.). @ -CT abdomen pelvis shows evidence of recently passed stone in right, no significant hydronephrosis currently U/S interpreted by me (1pt. min.). @ -None done What testing was considered but not performed or refused? (CT, X-rays, U/S, labs)? Why? @ -None What meds were considered but not given or refused? Why? @ -None Did you discuss the management of the patient with other professionals (professionals i.e. , PA, ENGRAVER APPRENTICE DECORATIVE, lab, RT, psych nurse, social services analyst, sports lawyer, teacher, contract officer, rehabilitation caseworker)? Give summary @ -No Was smoking cessation discussed for >3mins.? @ -No Was critical care preformed (if so, how long)? @ -No Were there social determinants of health that impacted care today? How? (Homelessness, low income, unemployed, alcoholism, drug addiction, transportation, low edu. Level, literacy, decrease access to med. care, [facility], rehab)? @ -No Was there de-escalation of care discussed even if they declined (Discuss DNR or withdrawal of care, Hospice)? DNR status @ -No What co-morbidities impacted this encounter? (DM, HTN, Smoking, COPD, CAD, Cancer, CVA, ARF, Chemo, Hep., AIDS, mental health diagnosis, sleep apnea, morbid obesity)? @ -None Was patient admitted / discharged? Hospital course, mention meds given and route, prescriptions, significant lab abnormalities, going to OR and other pertinent info. @ -Discharge patient passed a stone patient is currently asymptomatic. Patient is discharged in stable condition return parameters wade. Undiagnosed new problem with uncertain prognosis? @ -No Drug Therapy requiring intensive monitoring for toxicity (Heparin, Nitro, Insulin, Cardizem)? @ -No Were any procedures done? @ -No Diagnosis/symptom? @ -[Kidney stone Acute, or Chronic, or Acute on Chronic? @ -Acute Uncomplicated (without systemic symptoms) or Complicated (systemic symptoms)? @ -Uncomplicated Side effects of treatment? @ -No Exacerbation, Progression, or Severe Exacerbation? @ -No Poses a threat to life or bodily function? How? (Chest pain, [place], MA, pneumonia, PE, COPD, DKA, ARF, appy, cholecystitis, CVA, Diverticulitis, Homicidal, Suicidal, threat to staff... and all critical care pts) @ -No - Lab Data Result diagrams: 05/23/24 11:20 05/23/24 11:20 Lab Results 05/23/24 05/23/24 05/23/24 Range/Units 11:20 11:20 11:20 WBC 10.0 (3.8-10.6) k/uL RBC 4.63 (4.30-5.90) m/uL Hgb 14.1 (13.0-17.5) gm/dL Hct 42.9 (39.0-53.0) % MCV 92.7 (80.0-100.0) fL MCH 30.6 (25.0-35.0) pg MCHC 33.0 (31.0-37.0) g/dL RDW 13.0 (11.5-15.5) % Plt Count 211 (150-450) k/uL MPV 7.5 Neutrophils % 87 % Lymphocytes % 8 % Monocytes % 3 % Eosinophils % 1 % Basophils % 0 % Neutrophils # 8.8 H (1.3-7.7) k/uL Lymphocytes # 0.8 L (1.0-4.8) k/uL Monocytes # 0.3 (0-1.0) k/uL Eosinophils # 0.1 (0-0.7) k/uL Basophils # 0.0 (0-0.2) k/uL Sodium 138 (137-145) mmol/L Potassium 4.3 (3.5-5.1) mmol/L Chloride 104 (98-107) mmol/L Carbon Dioxide 20 L (22-30) mmol/L Anion Gap 14 mmol/L BUN 17 (9-20) mg/dL Creatinine 1.03 (0.66-1.25) mg/dL Est GFR (CKD-EPI)AfAm 80 (>60 ml/min/1.73 sqM) Est GFR (CKD-EPI)NonAf 69 (>60 ml/min/1.73 sqM) Glucose 261 H (74-99) mg/dL Lactic Ac Sepsis Rflx Plasma Lactic Acid Tr (0.7-2.0) mmol/L Calcium 9.5 (8.4-10.2) mg/dL Total Bilirubin 1.4 H (0.2-1.3) mg/dL AST 25 (17-59) U/L ALT 20 (4-49) U/L Alkaline Phosphatase 69 (38-126) U/L Total Protein 7.2 (6.3-8.2) g/dL Albumin 4.7 (3.5-5.0) g/dL Lipase 95 (23-300) U/L Urine Color Colorless Urine Appearance Clear (Clear) Urine pH 6.0 (5.0-8.0) Ur Specific [place] 1.010 (1.001-1.035) Urine Protein Negative (Negative) Urine Glucose (UA) 4+ H (Negative) Urine Ketones 1+ H (Negative) Urine Blood Trace H (Negative) Urine Nitrite Negative (Negative) Urine Bilirubin Negative (Negative) Urine Urobilinogen <2.0 (<2.0) mg/dL Ur Leukocyte Esterase Negative (Negative) Urine RBC 1 (0-5) /hpf Urine WBC <1 (0-5) /hpf 05/23/24 05/23/24 05/23/24 Range/Units 11:20 11:55 14:24 WBC (3.8-10.6) k/uL RBC (4.30-5.90) m/uL Hgb (13.0-17.5) gm/dL Hct (39.0-53.0) % MCV (80.0-100.0) fL MCH (25.0-35.0) pg MCHC (31.0-37.0) g/dL RDW (11.5-15.5) % Plt Count (150-450) k/uL MPV Neutrophils % % Lymphocytes % % Monocytes % % Eosinophils % % Basophils % % Neutrophils # (1.3-7.7) k/uL Lymphocytes # (1.0-4.8) k/uL Monocytes # (0-1.0) k/uL Eosinophils # (0-0.7) k/uL Basophils # (0-0.2) k/uL Sodium (137-145) mmol/L Potassium (3.5-5.1) mmol/L Chloride (98-107) mmol/L Carbon Dioxide (22-30) mmol/L Anion Gap mmol/L BUN (9-20) mg/dL Creatinine (0.66-1.25) mg/dL Est GFR (CKD-EPI)AfAm (>60 ml/min/1.73 sqM) Est GFR (CKD-EPI)NonAf (>60 ml/min/1.73 sqM) Glucose (74-99) mg/dL Lactic Ac Sepsis Rflx Y Plasma Lactic Acid Tr 2.2 H* 1.9 (0.7-2.0) mmol/L Calcium (8.4-10.2) mg/dL Total Bilirubin (0.2-1.3) mg/dL AST (17-59) U/L ALT (4-49) U/L Alkaline Phosphatase (38-126) U/L Total Protein (6.3-8.2) g/dL Albumin (3.5-5.0) g/dL Lipase (23-300) U/L Urine Color Urine Appearance (Clear) Urine pH (5.0-8.0) Ur Specific [place] (1.001-1.035) Urine Protein (Negative) Urine Glucose (UA) (Negative) Urine Ketones (Negative) Urine Blood (Negative) Urine Nitrite (Negative) Urine Bilirubin (Negative) Urine Urobilinogen (<2.0) mg/dL Ur Leukocyte Esterase (Negative) Urine RBC (0-5) /hpf Urine WBC (0-5) /hpf Disposition Clinical Impression: Kidney stone Disposition: HOME SELF-CARE Condition: Stable Instructions (If sedation given, give patient instructions): Kidney Stones (ED) Additional Instructions: Please return to the Emergency Department if symptoms worsen or any other concerns. Is patient prescribed a controlled substance at d/c from ED?: No Referrals: Rosalio Palomares MD [Primary Care Provider] - 1-2 days Time of Disposition: 14:52
[2024-05-23 15:04] VITALS: BP 138/93; PULSE 90; RESP 16
== END 2024-05-23 15:03 | disposition home or self-care (01) ==
LOC: EC 10:15
DX: N20.0 Calculus of kidney (principal); Z88.2 Allergy status to sulfonamides
CPT/HCPCS: 36415; 80053; 83605; 83690; 85025; 81001; 74176; 99284; 96374; 96375; 96361; J2405; J1885